=== PATIENT | female | born 1940 | race Caucasian/White ===

== ENCOUNTER 2017-04-22 10:19 | Day surgery (SDC) | payer OTHER ==
[~2017-04-22] VITALS: Ht 170.2 cm; Wt 59.4 kg
[~2017-04-22 10:19] MED LIST: ALPHAGAN P100 DROP/1 BOTH EYES; ATORVASTATIN CA40 MG PO; Alphagan P 0.15% Oph BOTH EYES; Aspirin E.C. PO; BRILINTA90 MG PO; BYSTOLIC10 MG PO; BYSTOLIC20 MG PO; Bystolic PO; CEFTIN500 MG PO; COREG6.25 M1 PO; DAILY VALUE1 EACH PO; DUONEB 2.5-0.5 M3 ML IH; ELAVIL10 MG PO; FISH OIL500 MG PO; KEFLEX500 MG PO; LIPITOR40 MG PO; LISINOPRIL10 MG PO; LO-DOSE ASPIRIN81 M1 PO; PLAVIX75 MG PO; PRINIVIL10 MG PO; PROBIOTIC1 EAC1 PO; ST. JOSEPH ASPI81 MG PO; TESSALON200 MG PO; TIMOLOL MALEATE5 M1 BOTH EYES; TIMOPTIC-0100 DROP/1 BOTH EYES; TYLENOL EXTRA500 MG PO; Timoptic-0.5%,Isatol BOTH EYES; VITAMIN D2000 UNIT PO; VITAMIN D33000 UNIT PO; XALATAN2.5 ML BOTH EYES; Xalatan 0.005% Ophth BOTH EYES; ZITHROMAX250 MG PO; Zestril,Prinivil PO
== END 2017-04-22 12:20 | disposition home or self-care (01) ==
LOC: PAIN 10:19 → SDC 11:00 → PAIN 11:00
DX: M47.812 Spondylosis without myelopathy or radiculopathy, cervical region (principal); G89.29 Other chronic pain; M54.2 Cervicalgia; M50.31 Other cervical disc degeneration, high cervical region; M79.1 Myalgia; M48.02 Spinal stenosis, cervical region; I10 Essential (primary) hypertension; E78.5 Hyperlipidemia, unspecified; I25.10 Atherosclerotic heart disease of native coronary artery without angina pectoris; I25.2 Old myocardial infarction; Z79.82 Long term (current) use of aspirin; Z79.02 Long term (current) use of antithrombotics/antiplatelets
CPT/HCPCS: J1030; J2250; J3010; S0020